=== PATIENT | female | born 1995 | race Caucasian/White ===

== ENCOUNTER 2017-07-29 04:43 | Emergency (ER) | payer BC, OTHER ==
[~2017-07-29] VITALS: Ht 162.6 cm; Wt 79.4 kg
[2017-07-29] MEDS ORDERED: IV NORMAL SALINE 1,000ML 1,000 ML IV SCH (05:00)
--- NOTE | 2017-07-29 05:18 | PHYS DOC ---
General Chief Complaint: VAGINAL BLEEDING Stated Complaint: SYNCOPE,CRAMPING,BLEEDING 4WKS Time Seen by MD: 04:46 Source: patient, family Exam Limitations: no limitations Problems: (MARK QUIGLEY DO) Time Seen by MD: 06:17 Problems: (MARGO MARIN MD) History of Present Illness Initial Comments Patient is a 22-year-old female brought to the ED by her mother with possible complications. Patient states that she thinks her last menstrual period was 2 weeks ago however further reveals it was not a normal period with less bleeding and duration. For the past 6 days she's had intermittent spotting described as drops of bright red blood in her undergarments. Yesterday she developed some low abdominal cramping, it intensified last night and became severe and accompanied by low back tightness as well. Around midnight she developed right sided adnexa pain described as sharp and stabbing, severe in intensity no exacerbating or relieving factors. She states that around that time she stood up to get out of bed to go the restroom and "I think I passed out." She says that she woke on the floor and her mother states that she heard a crash however the patient denies any injuries from the fall. She denies having had any chest pain shortness of breath or headache, and her mother confirms that she was not postictal. She is very anxious on ED arrival and voices her concerns she's having an ectopic and bleeding internally." I spent most of the night reading about this on the Internet." Urine test is positive in the emergency department, confirming she's 1 para 0 she states that she took 4 tests at home yesterday which were all positive she is not taking vitamins and does not know her blood type her mom thinks she is AB-. On arrival patient's heart rate is 97 bpm, blood pressure 146/88. Timing/Duration: other Severity: severe Modifying Factors: worse with movement, improves with rest Associated Symptoms: syncope, other (MARK QUIGLEY DO) Allergies: Coded Allergies: No Known Drug Allergies (Unverified , 07/14/14) Past Medical History Medical History: no pertinent history Surgical History: no surgical history LMP (Females 10-50): (MARK QUIGLEY DO) Social History Smoker: non-smoker Alcohol: none Drugs: none (MARK QUIGLEY DO) Review of Systems Constitutional: denies chills, denies fever, denies malaise Respiratory: denies cough, denies shortness of breath, denies wheezing Cardiovascular: denies chest pain, denies palpitations, syncope Gastrointestinal: see HPI, denies constipation, denies diarrhea, denies nausea , denies vomiting Genitourinary: see HPI Musculoskeletal: see HPI, denies joint swelling, denies muscle pain, denies neck pain Psychiatric/Neurological: see HPI, denies headache, denies numbness, denies paresthesia, denies weakness Hematologic/Lymphatic: denies blood clots, denies easy bleeding, denies easy bruising (MARK QUIGLEY DO) Physical Exam General Appearance: WD/WN, moderate distress Eyes: bilateral eye normal inspection, bilateral eye PERRL, bilateral eye EOMI Ear, Nose, Throat: hearing grossly normal, normal ENT inspection, other (head is normocephalic atraumatic) Neck: full range of motion, supple Respiratory: normal breath sounds, no respiratory distress Cardiovascular: normal peripheral pulses, regular rate, rhythm Gastrointestinal: normal bowel sounds, non tender, soft (nondistended,) Back: no CVA tenderness, no vertebral tenderness Extremities: non-tender, normal inspection 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 1 L normal saline IV bolus initiated as well and the patient was placed on the monitor for observation. 0601: No further labs back, ultrasound reportedly is in route from [facility]. Patient signed out to Dr. Marin at 6 AM shift change. See her documentation for results and patient disposition. Patient remained stable and is resting comfortably. (MARK QUIGLEY DO) Orders, Labs, Meds The patient's care transferred to [facility] by at 0600 for following the results of ultrasound. Patient had stable vital signs with blood type of B negative. HCG Quant was 35. The OB ultrasound did not show extrauterine or intrauterine . Patient did not have active bleeding in the ER. Plan to discharge patient home after receiving RhoGAM with instruction to follow up with [facility] for repeat hCG in 2 days and further evaluation. (MARGO MARIN MD) Departure Departure: Impression: Primary Impression: Threatened Disposition: HOME, SELF-CARE Admitting Physician: Other (Dr Cassidy) (MARGO MARIN MD) Condition: IMPROVED Patient Instructions: Threatened Miscarriage Additional Instructions: Follow-up with Dr. Morgan Cassidy at [address] [facility] [id number] in 2-3 days for repeating blood test and further evaluation, call at [phone] to make an appointment MARK QUIGLEY DO Jul 29, 2017 05:18 MAROG MARIN MD Jul 29, 2017 08:48
[2017-07-29 06:13] LABS: BACTERIA,URINE MOD /HPF (0-FEW); BILIRUBIN,URINE NEG (NEG); CLARITY,URINE HAZY; COLOR,URINE YELLOW; GLUCOSE,URINE NEG (NEG); NITRITE,URINE NEG (NEG); SQUAMOUS EPITHELIAL CELL,UR FEW /LPF; UROBILINOGEN,URINE 0.2 mg/dL (0.2 mg/dL)
[2017-07-29 06:13] LABS: BASO # 0.1 x10^3/uL (0.0-0.2); BASO % 1 % (0-3); EOS % 0 % (0-3); HEMATOCRIT 43.6 % (36.0-47.0); HEMOGLOBIN 15.5 g/dL (12.0-15.5); LYMPH # 2.2 x10^3/uL (1.0-4.8); LYMPH % 18 % (24-48); MEAN CORPUSCULAR HEMOGLOBIN 32 pg (25-35); MEAN CORPUSCULAR HGB CONC 36 g/dL (31-37); MEAN CORPUSCULAR VOLUME 89 fL (79-100); MONO # 0.5 x10^3/uL (0.0-1.1); MONO % 4 % (0-9); NEUT # 9.8 x10^3uL (1.8-7.7); NEUT % 78 % (31-73); PLATELET COUNT 256 x10^3/uL (140-400); RED BLOOD COUNT 4.89 x10^6/uL (3.50-5.40); RED CELL DISTRIBUTION WIDTH 12.2 % (11.5-14.5); WHITE BLOOD COUNT 12.5 x10^3/uL (4.0-11.0)
[2017-07-29 06:31] LABS: ALBUMIN 4.6 g/dL (3.4-5.0); CALCIUM 9.5 mg/dL (8.5-10.1); CREATININE 0.9 mg/dL (0.6-1.0); DIRECT BILIRUBIN 0.1 mg/dL (0.0-0.2); POTASSIUM 3.9 mmol/L (3.5-5.1); TOTAL BILIRUBIN 0.3 mg/dL (0.2-1.0)
--- NOTE | 2017-07-29 07:36 | RAD ---
OB <14 WKS Clinical Indication: 2-6 wks gest, bleeding/R adnexa pain, quantitative beta hCG level of 35. Comparison: None. Technique: Transverse and longitudinal sonography of the pelvis is performed, utilizing transabdominal and transvaginal transducers. Findings: Transabdominal imaging demonstrates the urinary bladder is distended with anechoic urine and grossly unremarkable in the single image provided. The uterus is anteflexed measuring 8.6 x 4.4 x 5.3 cm. Endometrial thickness measures 1.5 cm. Neither ovary is seen. Transvaginal imaging demonstrates an anteflexed uterus measuring 8.3 x 3.9 x 4.7 cm. Endometrial thickness measures 1.2 cm. No intrauterine fluid collection or gestational sac is seen. The right ovary is visualized measuring 3.3 x 2.2 x 2.0 cm, with internal blood flow documented. Within the right ovary is a 1.5 cm complex appearing cyst. The left ovary is partially visualized measuring 2.6 x 2.3 x 1.7 cm, with internal blood flow documented. No ovarian or adnexal mass is seen on the left. No adnexal mass is seen on the right. No free fluid is seen within the provided images. IMPRESSION: 1. No intrauterine gestational sac seen. Endometrial thickness measures 1.2 cm. 2. Both ovaries visualized with blood flow documented. Hemorrhagic versus corpus luteal cyst seen in the right ovary. No adnexal mass or free fluid seen.
[2017-07-29 09:24] VITALS: BP 140/87
[2017-07-29 09:39] VITALS: BP 126/75
== END 2017-07-29 09:54 | disposition home or self-care (01) ==
LOC: ER 04:43
DX: O20.0 Threatened abortion (principal); Z3A.01 Less than 8 weeks gestation of pregnancy
CPT/HCPCS: 36415; 76801; 80048; 80076; 81001; 81025; 84702; 85025; 86850; 86900; 86901; 87086; 96360; 96361; 99285; J2791; J7030

== ENCOUNTER 2017-10-02 09:31 | Emergency (ER) | payer BC ==
[~2017-10-02] VITALS: Ht 162.6 cm; Wt 79.4 kg
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
[2017-10-02 10:10] VITALS: BP 154/73
[2017-10-02] MEDS ORDERED: CYCL-331 PO (10:22)
== END 2017-10-02 10:20 | disposition home or self-care (01) ==
LOC: ER 09:31
DX: S06.0X0A Concussion without loss of consciousness, initial encounter (principal); S16.1XXA Strain of muscle, fascia and tendon at neck level, initial encounter; S80.02XA Contusion of left knee, initial encounter; S50.811A Abrasion of right forearm, initial encounter; V43.52XA Car driver injured in collision with other type car in traffic accident, initial encounter; Y93.89 Activity, other specified; Y99.8 Other external cause status; Y92.488 Other paved roadways as the place of occurrence of the external cause
CPT/HCPCS: 99282; 99283

== ENCOUNTER 2017-10-04 12:14 | Emergency (ER) | payer BC ==
[~2017-10-04] VITALS: Ht 162.6 cm; Wt 79.4 kg
[~2017-10-04 12:14] MED LIST: CYCL-331 PO
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
[2017-10-04 13:50] VITALS: BP 148/83
== END 2017-10-04 13:50 | disposition home or self-care (01) ==
LOC: ER 12:14
DX: F07.81 Postconcussional syndrome (principal); H02.401 Unspecified ptosis of right eyelid
CPT/HCPCS: 70450; 99284-25

== ENCOUNTER 2019-05-27 14:40 | Emergency (ER) | payer BC, OTHER ==
[~2019-05-27] VITALS: Ht 165.1 cm; Wt 84.4 kg
[2019-05-27] MEDS ORDERED: CLIN150C14 PO (15:18)
--- NOTE | 2019-05-27 15:19 | PHYS DOC ---
Past History Past Medical History: Depression Past Surgical History: No Surgical History Smoking: Non-smoker Alcohol Use: None Drug Use: None, Methamphetamine (per friend, patient denies) Adult General Chief Complaint Chief Complaint: SKIN RASH/ABSCESS HPI HPI Patient is a 23-year-old female presents complaining of a facial rash that started approximately 10:00 last night. Patient noted a cystlike structure, and she poked it with a needle. Since that time the rash has bread from her nasal region to the rest of her face. She denies any fever. Denies any purulent drainage. She has also recently started using a salicylic acid wash, approximately a week ago. She has not tried any specific measures to help with this rash. She denies any difficulty breathing or swallowing. Denies any fever. Denies any trauma.[] Review of Systems Review of Systems Constitutional: Denies fever or chills [] Eyes: Denies change in visual acuity, redness, or eye pain [] HENT: Denies nasal congestion or sore throat [] Respiratory: Denies cough or shortness of breath [] Cardiovascular: No chest pain or palpitations[] GI: Denies abdominal pain, nausea, vomiting, bloody stools or diarrhea [] : Denies dysuria or hematuria [] Musculoskeletal: Denies back pain or joint pain [] Integument: See history of present illness[] Neurologic: Denies headache, focal weakness or sensory changes [] Endocrine: Denies polyuria or polydipsia [] All other systems were reviewed and found to be within normal limits, except as documented in this note. Allergies Allergies Allergies Coded Allergies Type Severity Reaction Last Updated Verified No Known Drug Allergies 10/04/17 No Physical Exam Physical Exam Constitutional: Well developed, well nourished, no acute distress, non-toxic appearance. [] HENT: Normocephalic, atraumatic, bilateral external ears normal, oropharynx moist, no oral exudates, nose normal. [] Eyes: PERRLA, EOMI, conjunctiva normal, no discharge. [] Neck: Normal range of motion, no tenderness, supple, no stridor. [] Cardiovascular:Heart rate regular rhythm, no murmur [] Lungs & Thorax: Bilateral breath sounds clear to auscultation [] Abdomen: Bowel sounds normal, soft, no tenderness, no masses, no pulsatile masses. [] Skin: Warm, dry, erythematous rash diffusely across her face with several scaly/crusty areas of serous discharge. No purulent drainage. No cervical lymphadenopathy is present. No petechiae. Negative Nikolsky sign. [] Back: No tenderness, no CVA tenderness. [] Extremities: No tenderness, no cyanosis, no clubbing, ROM intact, no edema. [] Neurologic: Alert and oriented X 3, normal motor function, normal sensory function, no focal deficits noted. [] Psychologic: Affect normal, judgement normal, mood normal. [] Current Patient Data Vital Signs Vital Signs Date Time Temp Pulse Resp B/P (MAP) Pulse Ox O2 Delivery O2 Flow Rate FiO2 05/27/19 14:45 97.4 116 20 98 Room Air EKG EKG [] Radiology/Procedures Radiology/Procedures [] Course & Med Decision Making Course & Med Decision Making Pertinent Labs and Imaging studies reviewed. (See chart for details) ED course: Patient arrived, was placed in bed, and tolerated exam well. Findings were discussed with patient and her mother who voiced understanding. All questions were answered. She was discharged in improved condition. Medical decision making: Patient has a serous, weeping rash from her face. There is no evidence of staph scalded skin syndrome, no toxic epidermal necrolysis, no London-Hema syndrome. At one level this may be impetigo. However, friend of the patient reports that she has been using methamphetamine despite patient denying it, and so some of this may be related to picking issues. There is no evidence of similar rash elsewhere on her body so do not believe this specifically to be the case. ED course addendum: After discharge, mother came out and voiced concerns to the snow remover caring for the patient. I went back into the room discussed these concerns with patient alone. Patient does admit to using methamphetamine, snorting it, since this is her last semester in college and she is trying to get through it without motivation. Patient denies any suicidal or homicidal ideation. She believes she needs an adjustment in her middle health medicines. She has not been seeking any other mental health care other than taking her usual Lexapro. We are providing her with a list of mental health as well as other community resources. She does not appear to be suicidal or homicidal, no evidence of hallucinations or self-harm behavior other than the drug use.[] Dragon Disclaimer Dragon Disclaimer This electronic medical record was generated, in whole or in part, using a voice recognition dictation system. Departure Departure: Impression: Primary Impression: Impetigo Disposition: HOME, SELF-CARE Condition: IMPROVED Referrals: PCP,NO (PCP) Patient Instructions: Impetigo Additional Instructions: Stop using your new skin/facial products. You may wash with soap and water, and change the wash cloth after each washing of your face. Take the medication as prescribed. Do not use any drugs or medications that are not prescribed for you. All up with your regular doctor in 2 days. If you do not have a regular doctor list of local clinics will be provided. Return to the ER if worsening rash, difficulty breathing, purulent drainage, fever of more than 101, or any other concerns. Scripts Clindamycin Hcl (CLINDAMYCIN HCL) 150 Mg Capsule 2 CAP PO QID for impetigo, #80 CAP Prov: SKIP AGGARWAL DO 05/27/19 SKIP AGGARWAL DO May 27, 2019 15:19
[2019-05-27 15:20] VITALS: BP 142/104
== END 2019-05-27 15:22 | disposition home or self-care (01) ==
LOC: ER 14:40
DX: L01.00 Impetigo, unspecified (principal)
CPT/HCPCS: 99283